=== PATIENT | female | born 1980 | race Caucasian/White ===

== ENCOUNTER 2020-03-06 09:07 | Emergency (ER) | payer OTHER ==
[2020-03-06] MEDS ORDERED: CEFTRIAXONE INJ 1000 MG VIAL IM ONE (09:53)
[2020-03-06] MEDS ORDERED: DEXAMETHASONE SOD PHOS INJ 10 MG/1 ML VIAL IV ONE (09:54)
--- NOTE | 2020-03-06 09:59 | ER Document Report ---
ED ENT - General Chief Complaint: Swollen Glands Stated Complaint: SWOLLEN TONSILS Time Seen by Provider: 03/06/20 09:30 Mode of Arrival: Ambulatory Information source: Patient Notes: MY NOTES 39 year old female with chief complaint of sore throat and tonsillitis. 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 She also reports she has been vacationing [place] 2 [place] on the [place] with a good friend and her friend tested positive for strep but negative for coronavirus. Patient tested negative for strep herself but has the sore throat issues.. Patient has been taking some zinc and be vitamins but still continues to have problems. She has had Rocephin in the past but is allergic to Augmentin. TRAVEL OUTSIDE OF THE [place] IN LAST 30 DAYS: No - HPI Patient complains to provider of: Nose problem, Throat problem. No: Dental problem, Ear problem Onset: Last week Onset/Duration: Sudden, Persistent, Worse. denies: Waxing and waning Severity: Mild Pain Level: 1 Context: denies: Allergies, Injury, Recent Illness, Travel Location of pain: Throat. No: Ears, Face, Jaw, Neck, Nose, Sinus, Tooth Similar symptoms previously: No Recently seen / treated by doctor: No - Related Data Allergies/Adverse Reactions: amoxicillin [From Augmentin] Allergy (Verified 03/06/20 09:59) clavulanic acid [From Augmentin] Allergy (Verified 03/06/20 09:59) Past Medical History - General Information source: Patient - Social History Smoking Status: Never Smoker Cigarette use (# per day): No Chew tobacco use (# tins/day): No Smoking Education Provided: No Frequency of alcohol use: None Lives with: Friend Family History: Reviewed & Not Pertinent Patient has suicidal ideation: No Patient has homicidal ideation: No Review of Systems - Review of Systems Constitutional: See HPI, Weakness, Recent illness. denies: Chills, Diaphoresis, Fever, Malaise EENT: See HPI, Nose congestion, Sinus pressure, Throat pain, Difficulty swallowing, Throat swelling, Mouth pain, Other - No smell or taste. denies: Eye pain, Eye discharge, Blurred vision, Tearing, Double vision, Ear pain, Ear discharge, Nose pain, Mouth swelling, Dental problem, Vertigo Cardiovascular: No symptoms reported Respiratory: No symptoms reported Gastrointestinal: No symptoms reported Genitourinary: No symptoms reported Female Genitourinary: No symptoms reported Musculoskeletal: No symptoms reported Skin: No symptoms reported Hematologic/Lymphatic: No symptoms reported Neurological/Psychological: No symptoms reported Physical Exam - Vital signs Vitals: Temp Pulse Resp BP Pulse Ox 97.7 F 88 18 135/96 H 100 03/06/20 09:15 03/06/20 09:15 03/06/20 09:15 03/06/20 09:15 03/06/20 09:15 Interpretation: Hypertensive - General General appearance: Appears well, Alert - HEENT Head: Normocephalic, Atraumatic Eyes: Normal Pupils: PERRL Ears: Normal External canal: Normal Sinus: Normal Nasal: Normal Mouth/Lips: Normal Mucous membranes: Normal Pharynx: Erythema, Uvular edema Neck: Normal - Respiratory Respiratory status: No respiratory distress Chest status: Nontender Breath sounds: Normal Chest palpation: Normal - Cardiovascular Rhythm: Regular Heart sounds: Normal auscultation Murmur: No - Abdominal Inspection: Normal Distension: No distension Bowel sounds: Normal Tenderness: Nontender Organomegaly: No organomegaly - Rectal Hemorrhoids: Other - deferred - Genitourinary Bimanuel exam: Other - deferred - Back Back: Normal, Nontender - Extremities General upper extremity: Normal inspection, Nontender, Normal color, Normal ROM, Normal temperature General lower extremity: Normal inspection, Nontender, Normal color, Normal ROM, Normal temperature, Normal weight bearing. No: Pushpa's sign - Neurological Neuro grossly intact: Yes Cognition: Normal Orientation: AAOx4 Javier Coma Scale Eye Opening: Spontaneous Javier Coma Scale Verbal: Oriented Javier Coma Scale Motor: Obeys Commands Javier Coma Scale Total: 15 Speech: Normal Motor strength normal: LUE, RUE, LLE, RLE Sensory: Normal - Psychological Associated symptoms: Normal affect, Normal mood - Skin Skin Temperature: Warm Skin Moisture: Dry Skin Color: Normal Course - Vital Signs Vital signs: Temp Pulse Resp BP Pulse Ox 97.7 F 88 18 135/96 H 100 03/06/20 09:15 03/06/20 09:15 03/06/20 09:15 03/06/20 09:15 03/06/20 09:15 - Laboratory Results Critical Laboratory Results Reviewed: No Critical Results Attending or Supervising Physician who Reviewed Labs: IRMA GOLDMAN JR - Radiology Results Critical Radiology Results Reviewed: No Critical Results Attending or Supervising Physician who Reviewed Radiology: IRMA GOLDMAN JR Discharge - Discharge Clinical Impression: COVID-19 Pharyngitis Qualifiers: Pharyngitis/tonsillitis etiology: unspecified etiology Qualified Code(s): J02.9 - Acute pharyngitis, unspecified Condition: Stable Disposition: HOME, SELF-CARE Additional Instructions: Follow-up with personal doctor this week if symptoms persist. May return to ER as needed for true emergencies. Take medicines as directed. Try to take zinc and B complex and vitamin D to help ameliorate the Covid virus. Also may drink chamomile tea to help interferon development. May use Listerine sensitivity as gargle and spit. Try to avoid phenol containing Chloraseptic because this will burn tissues in the throat. Encourage fluids. Prescriptions: Dexamethasone [Decadron 4 Mg Tablet] 4 mg PO DAILY 5 Days #5 tablet Baloxavir Marboxil [Xofluza] 20 mg PO ONCE PRN #1 tablet PRN Reason: Azithromycin [Zithromax 250 mg Tablet] 250 mg PO ASDIR PRN #6 tablet PRN Reason: Forms: Elevated Blood Pressure, Return to Work
[2020-03-06] MEDS ORDERED: DEXAMETHASONE SOD PHOS INJ 10 MG/1 ML VIAL IM ONE (10:07)
[2020-03-06] MEDS ORDERED: LIDOCAINE 1% INJ (10 MG/ML) 10 ML MDV INJ ONE (10:11)
[2020-03-06 10:46] VITALS: BP 131/74
== END 2020-03-06 10:40 | disposition home or self-care (01) ==
LOC: ER 09:07
DX: U07.1 COVID-19 (principal); J02.9 Acute pharyngitis, unspecified; R53.1 Weakness
CPT/HCPCS: 99284; 96372; 96374; J0696; J1100